=== PATIENT | male | born 1945 | race Caucasian/White ===

== ENCOUNTER 2017-11-15 15:20 | Emergency (ER) | payer OTHER, MEDICARE ==
[2017-11-15] MEDS ORDERED: Sodium Chloride 0.9% 250 ML IV SCH (15:45)
[2017-11-15] MEDS ORDERED: Glucagon,Human Recombinant 1 MG Vial ONE (15:50)
--- NOTE | 2017-11-15 15:53 | EDM.PDOC ---
ED HPI GENERAL MEDICAL PROBLEM - General Chief Complaint: Neurological Problem Stated Complaint: LOW BLOOD SUGAR Time Seen by Provider: 11/15/17 15:35 Source of Information: Reports: Patient, RN History Limitations: Reports: Other (alert and talkative ) - History of Present Illness INITIAL COMMENTS - FREE TEXT/NARRATIVE: 72 yr male presents with confusion, weakness and low blood sugar, he presents via ambulance. Blood sugar in route was 43 and glucagon was given. Blood sugar now 112 @1540. Pt is alert and talkative. EKG completed and NSR noted. director script with rate of 78. Will check CBC, CMP and troponins today. Pt states he has ate today and has had his medications. States he should have some Whiskey. When asked about alcohol, he states he doesn't drink alcohol. States he does go to the [place] for his care. States he takes Lantus 38 units in am and 55 units at hs. He does take Metformin 1,000 mg bid and Glipizide 2 tablets of possible 10 mg in evening. States allergic to penicillin and prilosec. Hypoglycemia with dehydration probably related to not eating as much as usual and more activity with moving items to boat, in the heat and getting ready to go fishing. Will recommend holding Glipizide tonight and tomorrow night. Pt doesn't have his glucometer with him today and he lives in [place]. He will be staying in his camper at [place]. States he does have air conditioner. He will plan to go home tomorrow. His brother is here too and grandchildren. Check blood sugars at home daily and as needed. Continue with other medications as at home. Drink plenty of fluids. Call provider at [place] and schedule appointment with provider. Diet for diabetes as tolerated. Pt states understanding and is in agreement with this plan. - Related Data Allergies Allergy/AdvReac Type Severity Reaction Status Date / Time omeprazole [From Prilosec] Allergy Itching Verified 11/15/17 16:11 Penicillins Allergy Other Verified 11/15/17 16:11 ED ROS GENERAL - Review of Systems Review Of Systems: See Below Constitutional: Reports: Weakness HEENT: Reports: No Symptoms Respiratory: Reports: No Symptoms Cardiovascular: Reports: No Symptoms Endocrine: Reports: Low Glucose GI/Abdominal: Reports: No Symptoms Musculoskeletal: Reports: No Symptoms Skin: Reports: No Symptoms ED EXAM, NEURO - Physical Exam Exam: See Below General Appearance: Alert, No Apparent Distress Ears: Hearing Grossly Normal Nose: Normal Inspection, Normal Mucosa Throat/Mouth: Normal Inspection, Normal Voice, No Airway Compromise Head Exam: Atraumatic, Normocephalic Neck: Normal Inspection, Supple, Non-Tender Respiratory/Chest: No Respiratory Distress, Lungs Clear, Normal Breath Sounds Cardiovascular: Regular Rate, Rhythm, No Edema GI/Abdominal: Normal Bowel Sounds, Soft, Non-Tender Neurological: Alert, Normal Mood/Affect, Oriented x 3 Extremities: Normal Inspection, Normal Range of Motion, Non-Tender, No Pedal Edema Psychiatric: Normal Affect, Normal Mood Skin Exam: Warm, Dry, Normal Color Course - Vital Signs Last Recorded V/S: Last Vital Signs Temp 98 F 11/15/17 15:26 Pulse 75 11/15/17 15:26 Resp 18 11/15/17 15:26 BP 164/86 H 11/15/17 15:26 Pulse Ox 90 L 11/15/17 15:26 - Orders/Labs/Meds Orders: Active Orders 24 hr Category Date Time Status Cardiac Monitoring [RC] .As Directed Care 11/15/17 15:46 Active EKG Documentation Completion [RC] ASDIRECTED Care 11/15/17 15:43 Active Glucose [Blood Glucose Check, Bedside] [RC] ONETIME Care 11/15/17 15:46 Active Sodium Chloride 0.9% [Normal Saline] 250 ml Med 11/15/17 15:45 Active IV ASDIRECTED Medication Orders Sodium Chloride (Normal Saline) 250 mls @ 250 mls/hr IV ASDIRECTED GLO Labs: Laboratory Tests 11/15/17 11/15/17 11/15/17 Range/Units 14:40 15:55 15:55 WBC 11.2 H (4.0-11.0) K/uL RBC 3.99 L (4.50-6.50) M/uL Hgb 12.0 L (13.0-18.0) g/dL Hct 34.8 L (40.0-54.0) % MCV 87 (76-96) fL MCH 30.1 (27.0-32.0) pg MCHC 34.5 (31.0-35.0) g/dL RDW 12.5 (11.0-16.0) % Plt Count 203 (150-400) K/uL MPV 9.5 (6.0-10.0) fL Neut % (Auto) 77.1 H (45.0-70.0) % Lymph % (Auto) 13.4 L (20.0-40.0) % Maverick % (Auto) 7.2 (3.0-10.0) % Eos % (Auto) 2.0 (1.0-5.0) % Baso % (Auto) 0.3 (0.0-0.5) % Neut # (Auto) 8.66 H (2.00-7.50) K/uL Lymph # (Auto) 1.50 (1.50-4.00) K/uL Maverick # (Auto) 0.81 H (0.20-0.80) K/uL Eos # (Auto) 0.23 (0.04-0.40) K/uL Baso # (Auto) 0.03 (0.02-0.10) K/uL Sodium 140 (136-145) mmol/L Potassium 4.1 (3.5-5.1) mmol/L Chloride 108 H (98-107) mmol/L Carbon Dioxide 22.2 (21.0-32.0) mmol/L Anion Gap 13.9 (5.0-15.0) mmol/L BUN 39 H (8-26) mg/dL Creatinine 2.53 H (0.70-1.30) mg/dL Est Cr Clr Drug Dosing TNP Estimated GFR (MDRD) 25 L (>60) MLS/MIN BUN/Creatinine Ratio 15.4 (6-25) Glucose 119 H (74-100) mg/dL POC Glucose 112 H (74-110) mg/dL Calcium 8.4 L (8.5-10.1) mg/dL Total Bilirubin 0.5 (0.0-1.0) mg/dL AST 22 (15-37) U/L ALT 26 (12-78) U/L Alkaline Phosphatase 61 (46-116) U/L Troponin I (0.000-0.060) ng/mL Total Protein 7.6 (6.4-8.2) g/dL Albumin 3.6 (3.4-5.0) g/dL Globulin 4.0 (2.2-4.2) g/dL Albumin/Globulin Ratio 0.9 (0.8-2.0) 11/15/17 Range/Units 15:55 WBC (4.0-11.0) K/uL RBC (4.50-6.50) M/uL Hgb (13.0-18.0) g/dL Hct (40.0-54.0) % MCV (76-96) fL MCH (27.0-32.0) pg MCHC (31.0-35.0) g/dL RDW (11.0-16.0) % Plt Count (150-400) K/uL MPV (6.0-10.0) fL Neut % (Auto) (45.0-70.0) % Lymph % (Auto) (20.0-40.0) % Maverick % (Auto) (3.0-10.0) % Eos % (Auto) (1.0-5.0) % Baso % (Auto) (0.0-0.5) % Neut # (Auto) (2.00-7.50) K/uL Lymph # (Auto) (1.50-4.00) K/uL Maverick # (Auto) (0.20-0.80) K/uL Eos # (Auto) (0.04-0.40) K/uL Baso # (Auto) (0.02-0.10) K/uL Sodium (136-145) mmol/L Potassium (3.5-5.1) mmol/L Chloride (98-107) mmol/L Carbon Dioxide (21.0-32.0) mmol/L Anion Gap (5.0-15.0) mmol/L BUN (8-26) mg/dL Creatinine (0.70-1.30) mg/dL Est Cr Clr Drug Dosing Estimated GFR (MDRD) (>60) MLS/MIN BUN/Creatinine Ratio (6-25) Glucose (74-100) mg/dL POC Glucose (74-110) mg/dL Calcium (8.5-10.1) mg/dL Total Bilirubin (0.0-1.0) mg/dL AST (15-37) U/L ALT (12-78) U/L Alkaline Phosphatase (46-116) U/L Troponin I < 0.017 (0.000-0.060) ng/mL Total Protein (6.4-8.2) g/dL Albumin (3.4-5.0) g/dL Globulin (2.2-4.2) g/dL Albumin/Globulin Ratio (0.8-2.0) Meds: Medications Generic Name Dose Route Start Last Admin Trade Name Lois PRN Reason Stop Dose Admin Sodium Chloride 250 mls @ 250 mls/hr 11/15/17 15:45 Normal Saline IV ASDIRECTED GLO - Re-Assessments/Exams Free Text/Narrative Re-Assessment/Exam: 11/15/17 17:12 Lab work is reviewed and reviewed with pt. Blood sugar improved after sandwich and OJ 240cc. Troponin normal. Electrolytes normal with Sodium 140, Kcl 4.1 and anion gap 13.9. BUN and Creatinine slightly elevated and WBC slightly elevated. IV fluids continue at 250cc/hr. Will send pt home to care of family. Recommend follow-up with primary care provider in next week. Check blood sugar regularly and have regular meals with use of Lantus and Metformin. Will hold Glipizide tonight and tomorrow as pt doesn't have his blood sugar monitor with him. Recommend recheck blood sugars when home and restart Glipizide at home. Departure - Departure Time of Disposition: 17:45 Disposition: Home, Self-Care 01 Condition: Good Clinical Impression: Hypoglycemia, Diabetes mellitus - Discharge Information *PRESCRIPTION DRUG MONITORING PROGRAM REVIEWED*: Not Applicable *COPY OF PRESCRIPTION DRUG MONITORING REPORT IN PATIENT ECTOR: Not Applicable ( Hold Glipizide tonight and tomorrow and night. Check blood sugars, when you get home and restart glipizide when home. Continue other home medications. Follow up with primary care provider in 1-2 weeks as able.) Instructions: Heat Exhaustion Information, Hypoglycemia, [id number] Referrals: PCP,None [Ordering Only Provider] - Forms: ED Department Discharge Additional Instructions: - Hold Glipizide tonight. May continue taking it if able to check your blood sugar and if it's okay. - Continue Lantus and Metformin as directed. - Monitor blood sugar daily and as often as needed. - Continue drinking lots of fluids. - [facility] and set an appointment with provider for follow-up. - Continue with other medications as directed by your provider. - My Orders Last 24 Hours: My Active Orders 11/15/17 15:43 EKG Documentation Completion [RC] ASDIRECTED 11/15/17 15:45 Sodium Chloride 0.9% [Normal Saline] 250 ml IV ASDIRECTED 11/15/17 15:46 Cardiac Monitoring [RC] .As Directed Glucose [Blood Glucose Check, Bedside] [RC] ONETIME - Assessment/Plan Last 24 Hours: My Active Orders 11/15/17 15:43 EKG Documentation Completion [RC] ASDIRECTED 11/15/17 15:45 Sodium Chloride 0.9% [Normal Saline] 250 ml IV ASDIRECTED 11/15/17 15:46 Cardiac Monitoring [RC] .As Directed Glucose [Blood Glucose Check, Bedside] [RC] ONETIME Plan: 72 yr male presents with confusion, weakness and low blood sugar, he presents via ambulance. Blood sugar in route was 43 and glucagon was given. Blood sugar now 112 @1540. Pt is alert and talkative. EKG completed and NSR noted. director script with rate of 78. Will check CBC, CMP and troponins today. Pt states he has ate today and has had his medications. States he should have some Whiskey. When asked about alcohol, he states he doesn't drink alcohol. States he does go to the [place] for his care. States he takes Lantus 38 units in am and 55 units at hs. He does take Metformin 1,000 mg bid and Glipizide 2 tablets of possible 10 mg in evening. States allergic to penicillin and prilosec. Hypoglycemia with dehydration probably related to not eating as much as usual and more activity with moving items to boat, in the heat and getting ready to go fishing. Will recommend holding Glipizide tonight and tomorrow night. Pt doesn't have his glucometer with him today and he lives in [place]. He will be staying in his camper at [place]. States he does have air conditioner. He will plan to go home tomorrow. His brother is here too and grandchildren. Check blood sugars at home daily and as needed. Continue with other medications as at home. Drink plenty of fluids. Call provider at [place] and schedule appointment with provider. Diet for diabetes as tolerated. Pt states understanding and is in agreement with this plan.
== END 2017-11-15 17:50 | disposition home or self-care (01) ==
LOC: LB.ED 15:20
DX: E11.649 Type 2 diabetes mellitus with hypoglycemia without coma (principal); Z88.0 Allergy status to penicillin; Z88.8 Allergy status to other drugs, medicaments and biological substances
CPT/HCPCS: 36415; 80053; 82962; 84484; 85025; 93005; 99283; A0425; A0429; J1610; J7030